=== PATIENT | female | born 1995 | race Caucasian/White ===

== ENCOUNTER → 2016-11-07 | Outpatient (CLI) | payer OTHER ==
[~2016-11-07] MED LIST: IBUP-1222 PO; OMNIPAQUE 350 MG/ML, 100ML BOTTLE ONE; OXYC-302 PO; PREN1TAB69 PO
== END | disposition home or self-care (01) ==
LOC: CFH 09:22
PROVIDERS: ATTEND Family Medicine
DX: R10.9 Unspecified abdominal pain (principal); K76.89 Other specified diseases of liver
CPT/HCPCS: 74177; Q9967